=== PATIENT | female | born 1980 | race Caucasian/White ===

== ENCOUNTER → 2022-05-03 | Day surgery (SDC) | payer OTHER ==
[~2022-05-03] VITALS: Ht 170.2 cm; Wt 65.8 kg
[~2022-05-03] MED LIST: AMITIZA24 MCG PO; METFORMIN HCL1000 MG PO
[2022-05-03 08:59] LABS: HCG (URINE) SCREEN NEGATIVE (NEGATIVE)
[2022-05-03 09:05] LABS: HCT 44.2 % (37.0-47.0); MCH 33.3 pg (25.0-31.0); MCHC 33.9 g/dL (32.0-36.0); MPV 8.5 fL (6.0-9.5); RBC 4.51 M/uL (4.20-5.40); RDW 12.4 % (11.5-14.0); WBC 5.9 K/uL (4.0-10.5)
[2022-05-03 09:24] LABS: ALBUMIN 3.9 g/dL (3.4-5.0); BILIRUBIN - TOTAL 0.7 mg/dL (0.2-1.0); BUN/CREAT RATIO (CALC) 12.5 RATIO; CREATININE 0.64 mg/dL (0.51-0.95); GLOBULIN (CALCULATION) 3.4 g/dL; POTASSIUM 4.2 mmol/L (3.5-5.1); TOTAL PROTEIN 7.3 g/dL (6.4-8.2)
== END | disposition home or self-care (01) ==
LOC: FAS 08:30
PROVIDERS: Surgery
DX: K58.2 Mixed irritable bowel syndrome (principal); K92.1 Melena; K31.9 Disease of stomach and duodenum, unspecified; K21.00 Gastro-esophageal reflux disease with esophagitis, without bleeding; K29.60 Other gastritis without bleeding; K63.89 Other specified diseases of intestine
CPT/HCPCS: 36415; 76705; 80053; 84703; J2250; J2704; J7120